=== PATIENT | male | born 1955 | race Caucasian/White ===

== ENCOUNTER 2019-08-18 22:58 | Day surgery (SDC) | payer SELFPAY ==
--- NOTE | 2019-08-18 23:16 | ED Physician Documentation ---
History of Present Illness - Stated complaint Stated Complaint: SOMETHING STUCK IN THROAT - Chief complaint Chief Complaint: Heent - History obtained from History obtained from: Patient (Patient is a 63-year-old male who reports he was in an sausage tonight and now it feels like it stuck in his throat he reports he is able to swallow and tolerate his secretions but now it feels like he is drooling and 7 more difficulty swallowing and discomfort in his throat he denies any history of previous similar episodes he reports he does not take any daily medicationsHe denies any illicit drug use or alcohol use.) Review of Systems Constitutional: reports: Reviewed and negative Eyes: reports: Reviewed and negative Ears: reports: Reviewed and negative Nose: reports: Reviewed and negative Throat: reports: Swallowed foreign body (Reports he swallowed sausage and now it stuck in his throat.) Cardiac: reports: Reviewed and negative Respiratory: reports: Reviewed and negative GI: reports: Reviewed and negative : reports: Reviewed and negative Skin: reports: Reviewed and negative Musculoskeletal: reports: Reviewed and negative Neurologic: reports: Reviewed and negative Psychiatric: reports: Reviewed and negative Endocrine: reports: Reviewed and negative Immunocompromised: reports: Reviewed and negative PD PAST MEDICAL HISTORY - Past Medical History Past Medical History: No Cardiovascular: None Respiratory: None Neuro: None Endocrine/Autoimmune: None GI: None : None HEENT: None Psych: None Musculoskeletal: None Derm: None - Past Surgical History Past Surgical History: Yes General: Other Ortho: Hip replacement, Knee replacement - Allergies Allergies/Adverse Reactions: Allergies Allergy/AdvReac Type Severity Reaction Status Date / Time No Known Drug Allergies Allergy Verified 08/18/19 23:10 - Social History Does the pt smoke?: No Smoking Status: Never smoker Does the pt drink ETOH?: No Does the pt have substance abuse?: No - Immunizations Immunizations are current?: Yes - POLST Patient has POLST: No PD ED PE NORMAL - Vitals Vital signs reviewed: Yes - General General: Alert and oriented X 3, No acute distress - HEENT HEENT: PERRL, Other (Patient is currently tolerating his secretions he is actively spitting up he is in no respiratory distress however he is drooling and spitting into a cup. Trachea is midline) - Neck Neck: Supple, no meningeal sign - Cardiac Cardiac: RRR, No murmur - Respiratory Respiratory: Clear bilaterally - Abdomen Abdomen: Normal bowel sounds, Soft, Non tender, Non distended - Derm Derm: Warm and dry - Extremities Extremities: No deformity - Neuro Neuro: Alert and oriented X 3 - Psych Psych: Normal mood, Normal affect Results - Vitals Vitals: Vital Signs - 24 hr 08/18/19 08/19/19 08/19/19 23:09 00:06 00:19 Temperature 36.7 C Heart Rate 104 H 94 94 Respiratory 18 20 19 Rate Blood Pressure 154/88 H 174/104 H O2 Saturation 100 97 94 08/19/19 00:47 Temperature Heart Rate Respiratory 18 Rate Blood Pressure O2 Saturation Oxygen O2 Source Room air - Labs Labs: Laboratory Tests 08/18/19 08/18/19 08/18/19 23:37 23:37 23:37 WBC 5.4 RBC 4.78 Hgb 14.7 Hct 44.7 MCV 93.5 MCH 30.8 MCHC 32.9 RDW 13.6 Plt Count 240 MPV 9.8 Neut # (Auto) 3.3 Lymph # (Auto) 1.4 L [place] # (Auto) 0.7 Eos # (Auto) 0.1 Baso # (Auto) 0.1 Absolute Nucleated RBC 0.00 Nucleated RBC % 0.0 PT 12.2 INR 1.1 APTT 32.6 Sodium 139 Potassium 4.0 Chloride 102 Carbon Dioxide 25 Anion Gap 12.0 BUN 27 H Creatinine 1.6 H Estimated GFR (MDRD) 44 L Glucose 271 H Calcium 8.9 Total Bilirubin 0.6 AST 61 H ALT 90 H Alkaline Phosphatase 61 Total Protein 7.5 Albumin 4.0 Globulin 3.5 Albumin/Globulin Ratio 1.1 Lipase 63 H PD MEDICAL DECISION MAKING - Consults Consults: Consulted (name) (dr barclay general surgeon), Discussed case with (dr barclay general surgeon will take patient to OR for food impaction of esophagus, patient updated, glucagon uneffective.) Departure - Departure Disposition: ED Transfer to [facility] Clinical Impression: Food impaction of esophagus Qualifiers: Encounter type: initial encounter Qualified Code(s): T18.128A - Food in esophagus causing other injury, initial encounter Condition: Fair
[2019-08-18] MEDS ORDERED: SODIUM CHLORIDE 0.9% 1,000 ML IV ONE (23:24)
[2019-08-18] MEDS ORDERED: GLUCAGON 5 MG in DEXTROSE 5% 45 ML IV STA (23:25)
[2019-08-18] MEDS ORDERED: ONDANSETRON 4 MG/2 ML VIAL IVP STA (23:25)
[2019-08-18] MEDS ORDERED: GLUCAGON 2 MG in DEXTROSE 5% 45 ML IV STA (23:36)
[2019-08-18 23:47] LABS: BASOPHILS # (AUTO) 0.1 10^3/uL (0.0-0.1); BASOPHILS % (AUTO) 1.3 %; EOSINOPHILS # (AUTO) 0.1 10^3/uL (0.0-0.7); EOSINOPHILS % (AUTO) 1.3 %; HGB - HEMOGLOBIN 14.7 g/dL (14.0-18.0); LYMPHOCYTES # (AUTO) 1.4 10^3/uL (1.5-3.5); LYMPHOCYTES % (AUTO) 24.8 %; MEAN CORPUSCULAR HEMOGLOBIN 30.8 pg (27.0-31.0); MEAN CORPUSCULAR HGB CONC 32.9 g/dL (32.0-36.0); MEAN CORPUSCULAR VOLUME 93.5 fL (80.0-94.0); MEAN PLATELET VOLUME 9.8 fL (7.4-11.4); MONOCYTES # (AUTO) 0.7 10^3/uL (0.0-1.0); MONOCYTES % (AUTO) 12.7 %; NEUTROPHILS # (AUTO) 3.3 10^3/uL (1.5-6.6); NEUTROPHILS % (AUTO) 59.7 %; PLT - PLATELET COUNT 240 10^3/uL (130-450); RED BLOOD COUNT 4.78 10^6/uL (4.70-6.10); RED CELL DISTRIBUTION WIDTH 13.6 % (12.0-15.0); WHITE BLOOD COUNT 5.4 x10^3/uL (4.8-10.8)
[2019-08-18] MEDS ORDERED: GLUCAGON 1 MG/ML VIAL ONE (23:53)
[2019-08-18 23:58] LABS: INR 1.1 (0.8-1.2); PT - PROTHROMBIN TIME 12.2 secs (9.9-12.6)
[2019-08-19 00:01] LABS: ALBUMIN/GLOBULIN RATIO 1.1 (1.0-2.2); BILIRUBIN,TOTAL 0.6 mg/dL (0.2-1.0); CALCIUM 8.9 mg/dL (8.5-10.3); CREATININE 1.6 mg/dL (0.6-1.2); TOTAL PROTEIN 7.5 g/dL (6.7-8.2)
[2019-08-19 00:11] LABS: PARTIAL THROMBOPLASTIN TIME 32.6 secs (24.9-33.3)
[2019-08-19] MEDS ORDERED: LIDOCAINE-MPF 2% 5 ML VIAL IM ONE (01:01)
[2019-08-19] MEDS ORDERED: PROPOFOL 200 MG/20 ML VIAL IVP ONE (01:01)
[2019-08-19] MEDS ORDERED: fentaNYL 100 MCG/2 ML VIAL IVP ONE (01:01)
[2019-08-19] MEDS ORDERED: ONDANSETRON 4 MG/2 ML VIAL IVP ONE (01:01)
[2019-08-19] MEDS ORDERED: MIDAZOLAM 2 MG/2 ML VIAL IVP ONE (01:01)
[2019-08-19] MEDS ORDERED: DEXAMETHASONE 4 MG/ML VIAL IVP ONE (01:01)
[2019-08-19] MEDS ORDERED: ePHEDrine 50 MG/ML VIAL IVP ONE (01:01)
--- NOTE | 2019-08-19 01:11 | CONSULTATION NOTE ---
Referring Provider Name of Referring Provider:: Dr. Heart Consult Date: 08/19/19 Chief Complaint - Chief Complaint Chief Complaint: dysphagia History of Present Illness - Admitted From Admitted From:: ER - History Obtained From Records Reviewed: yes History obtained from: pt Exam Limitations: none - History of Present Illness HPI Comment/Other: 63 yo male who was eating dinner at approx 10 pm this evening, 3 hours ago, when he noted his food become lodged in his esophagus and he became unable to swallow his secretions. He points to the base of his neck where the discomfort is located. He reports eating sausage for dinner. He has dentures but wasn't we aring them while eating. He reports no hx prior similar events. He reports occasional heartburn for which he uses Tums but not on a daily basis. He was not drinking alcohol this evening. No hx prior GI problems. In the ER he was given a trial of glucagon which was not effective in alleviating his sx. 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 - Substance History Use: Uses substance without health or social issues: Alcohol (less than 1 drink per day), Cannabis (rarely) - POLST Patient has POLST: No Meds/Allgy - Allergies Allergies/Adverse Reactions: Allergies Allergy/AdvReac Type Severity Reaction Status Date / Time No Known Drug Allergies Allergy Verified 08/18/19 23:10 Review of Systems - Gastrointestinal Gastrointestinal: reports: Reflux/heartburn. denies: Abdominal pain, Constipation, Diarrhea, Change in bowel habits, Rectal bleeding, Black stools, Bloody stools, Nausea, Vomiting - Hematologic/Lymphatic Hematologic/Lymphatic: denies: Blood clots, Bleeding tendencies - All Other Systems All Other Systems: reports: Reviewed and negative (or covered in HPI/PMH) Exam - Vital Signs Reviewed Vital Signs: Yes Vital Signs: Vital Signs x48h Temp Pulse Resp BP Pulse Ox 08/19/19 00:47 18 08/19/19 00:19 94 19 94 08/19/19 00:06 94 20 174/104 H 97 08/18/19 23:09 36.7 C 104 H 18 154/88 H 100 - Physical Exam General Appearance: positive: Alert, Mild distress (spitting his saliva into a container) Eyes Bilateral: positive: Normal inspection, No scleral icterus ENT: positive: ENT inspection nml, Other (poor dentition) Neck: positive: Nml inspection, Thyroid nml, No JVD, Trachea midline. negative: Lymphadenopathy (R), Lymphadenopathy (L) Respiratory: positive: Chest non-tender, No respiratory distress, Breath sounds nml. negative: Wheezes, Rales, Rhonchi Cardiovascular: positive: Regular rate & rhythm, No murmur, No gallop Abdomen: positive: Non-tender, No organomegaly, No distention. negative: Hepatomegaly, Splenomegaly, Mass Skin: positive: Color nml, No rash, Warm, Dry. negative: Cyanosis Extremities: positive: Non-tender, Nml appearance, No pedal edema. negative: Calf tenderness Neurologic/Psychiatric: positive: Oriented x3 Conclusion and Plan - Lab Results Laboratory Results 08/18/19 23:37: Sodium 139, Potassium 4.0, Chloride 102, Carbon Dioxide 25, Anion Gap 12.0, BUN 27 H, Creatinine 1.6 H, Estimated GFR (MDRD) 44 L, Glucose 271 H, Calcium 8.9, Total Bilirubin 0.6, AST 61 H, ALT 90 H, Alkaline Phosphatase 61, Total Protein 7.5, Albumin 4.0, Globulin 3.5, Albumin/Globulin Ratio 1.1, Lipase 63 H 08/18/19 23:37: PT 12.2, INR 1.1, APTT 32.6 08/18/19 23:37: WBC 5.4, RBC 4.78, Hgb 14.7, Hct 44.7, MCV 93.5, MCH 30.8, MCHC 32.9, RDW 13.6, Plt Count 240, MPV 9.8, Neut # (Auto) 3.3, Lymph # (Auto) 1.4 L, [place] # (Auto) 0.7, Eos # (Auto) 0.1, Baso # (Auto) 0.1, Absolute Nucleated RBC 0.00, Nucleated RBC % 0.0 - Diagnosis Diagnosis: 1. Food bolus foreign body obstruction of esophagus; poor dentition likely contributed to problem. No hx suggestive of significant underlying disease such as stricture or malignancy. 2. Hyperglycemia. Non fasting, but likely has diabetes. - Plan Plan: EGD with removal of foreign body. PAR conference including risk of aspiration and perforation discussed and consent obtained. The procedure will be performed later tonight as soon as it can be arranged. He will be advised to f/u with his PCP regarding possible diabetes diagnosis and treatment. Thanks,
--- NOTE | 2019-08-19 01:17 | ANESTHESIA ---
Pre-Anesthesia VS, & Labs - Diagnosis Food bolus in esophagus - Procedure EGD Vital Signs: Temp Pulse Resp BP Pulse Ox 36.7 C 94 18 174/104 H 94 08/18/19 23:09 08/19/19 00:19 08/19/19 00:47 08/19/19 00:06 08/19/19 00:19 Height 5 ft 8 in Weight (kg) 86.183 kg Body Mass Index 28.8 - NPO Other (3 hours ago) - Lab Results Current Lab Results: Laboratory Tests 08/18/19 23:37: Sodium 139, Potassium 4.0, Chloride 102, Carbon Dioxide 25, Anion Gap 12.0, BUN 27 H, Creatinine 1.6 H, Estimated GFR (MDRD) 44 L, Glucose 271 H, Calcium 8.9, Total Bilirubin 0.6, AST 61 H, ALT 90 H, Alkaline Phosphatase 61, Total Protein 7.5, Albumin 4.0, Globulin 3.5, Albumin/Globulin Ratio 1.1, Lipase 63 H 08/18/19 23:37: PT 12.2, INR 1.1, APTT 32.6 08/18/19 23:37: WBC 5.4, RBC 4.78, Hgb 14.7, Hct 44.7, MCV 93.5, MCH 30.8, MCHC 32.9, RDW 13.6, Plt Count 240, MPV 9.8, Neut # (Auto) 3.3, Lymph # (Auto) 1.4 L, [place] # (Auto) 0.7, Eos # (Auto) 0.1, Baso # (Auto) 0.1, Absolute Nucleated RBC 0.00, Nucleated RBC % 0.0 Fish Bones: 08/18/19 23:37 08/18/19 23:37 Home Medications and Allergies Allergies/Adverse Reactions: Allergies Allergy/AdvReac Type Severity Reaction Status Date / Time No Known Drug Allergies Allergy Verified 08/18/19 23:10 Anes History & Medical History - Anesthetic History Anesthesia Complications: reports: No previous complications Family history of Anesthesia Complications: Denies Family history of Malignant Hyperthermia: Denies - Medical History Cardiovascular: reports: None Pulmonary: reports: None Gastrointestinal: reports: None, GERD Urinary: reports: None, Other (Right nephrectomy) Neuro: reports: None Musculoskeletal: reports: None Endocrine/Autoimmune: reports: None Blood Disorders: reports: None Skin: reports: None Smoking Status: Never smoker Psychosocial: reports: No issues indicated - Surgical History General: Other Orthopedic: Hip replacement, Knee replacement Exam General: Alert Dental: Dentures full Upper, Dentures full Lower Mouth Opening: Greater than 4 Fingerbreadths Neck Mobility: Normal Mallampati classification: I Thyromental Distance: greater than 6 cm Respiratory: Lungs clear Mental/Cognitive Status: Alert/Oriented X3 Cognitive Status: Within normal limits Plan Anesthesia Type: General Consent for Procedure(s) Verified and Reviewed: Yes Code Status: Attempt Resuscitation ASA classification: 2-Mild systemic disease Is this case an emergency?: Yes
[2019-08-19] MEDS ORDERED: LACTATED RINGERS 1,000 ML IV ONE ×2 (01:51→02:27)
[2019-08-19 07:46] VITALS: BP 146/93
== END 2019-08-19 10:33 | disposition home or self-care (01) ==
LOC: ED 22:58 → SDS 08-19 01:00 → MS2 08-19 03:22 → SDS 08-19 10:33
PROVIDERS: ATTEND Internal Medicine Gastroenterology
PROC: 0DC58ZZ Extirpation of Matter from Esophagus, Via Natural or Artificial Opening Endoscopic (ICD-10-PCS; principal; 2019-08-18)
PROC: 0DB28ZX Excision of Middle Esophagus, Via Natural or Artificial Opening Endoscopic, Diagnostic (ICD-10-PCS; 2019-08-18)
DX: T18.128A Food in esophagus causing other injury, initial encounter (principal); X58.XXXA Exposure to other specified factors, initial encounter; K21.0 Gastro-esophageal reflux disease with esophagitis; R73.9 Hyperglycemia, unspecified; Z90.5 Acquired absence of kidney; Z96.649 Presence of unspecified artificial hip joint; Z96.659 Presence of unspecified artificial knee joint
CPT/HCPCS: 36415; 43239; 43247; 80053; 83690; 85025; 85610; 85730; 96365; 96375; 99284; 99285; J7120

== ENCOUNTER 2024-01-11 18:54 | Emergency (ER) | payer MEDICARE ==
[2024-01-11] MEDS ORDERED: SODIUM CHLORIDE 0.9% 1,000 ML IV STA (19:53)
[2024-01-11] MEDS: DROPERIDOL 5 MG/2 ML VIAL IVP STA (20:11)
[2024-01-11] MEDS: SODIUM CHLORIDE 0.9% 1,000 ML IV STA ×2 (20:12→22:08)
[2024-01-11 20:16] LABS: BASOPHILS % (AUTO) 0.5 %; EOSINOPHILS # (AUTO) 0.1 10^3/uL (0.0-0.7); EOSINOPHILS % (AUTO) 1.2 %; HCT - HEMATOCRIT 37.2 % (42.0-52.0); LYMPHOCYTES % (AUTO) 16.9 %; MEAN CORPUSCULAR HEMOGLOBIN 28.4 pg (27.0-31.0); MEAN CORPUSCULAR HGB CONC 32.3 g/dL (32.0-36.0); MEAN CORPUSCULAR VOLUME 88.2 fL (80.0-94.0); MEAN PLATELET VOLUME 10.7 fL (7.4-11.4); MONOCYTES # (AUTO) 0.8 10^3/uL (0.0-1.0); MONOCYTES % (AUTO) 14.2 %; PLT - PLATELET COUNT 214 10^3/uL (130-450); RED BLOOD COUNT 4.22 10^6/uL (4.70-6.10); RED CELL DISTRIBUTION WIDTH 11.8 % (12.0-15.0); WHITE BLOOD COUNT 5.9 x10^3/uL (4.8-10.8)
[2024-01-11 20:22] LABS: VBG PCO2 32.6 mmHg (41-51); VBG PH 7.383 (7.31-7.41); VBG PO2 59.4 mmHg (25-47)
[2024-01-11 20:23] LABS: VBG BASE EXCESS -5.1 mmol/L (-2 - +2); VBG OXYGEN SATURATION 90.9 % (60-80)
[2024-01-11 20:31] LABS: ALBUMIN 3.5 g/dL (3.2-5.5); ALBUMIN/GLOBULIN RATIO 1.1 (1.0-2.2); ALKALINE PHOSPHATASE 52 IU/L (42-121); ALT ALANINE AMINOTRANSFERASE 53 IU/L (10-60); AST ASPARTATE AMINOTRANSFERASE 32 IU/L (10-42); BILIRUBIN,TOTAL 0.6 mg/dL (0.2-1.0); BUN - BLOOD UREA NITROGEN 49 mg/dL (6-20); CALCIUM 10.5 mg/dL (8.5-10.3); CARBON DIOXIDE - CO2 20 mmol/L (21-32); CHLORIDE 106 mmol/L (101-111); CREATININE 1.1 mg/dL (0.6-1.3); GFR - MDRD 67 (>89); GLUCOSE 232 mg/dL (74-104); LIPASE 48 U/L (11-82); POTASSIUM 4.7 mmol/L (3.5-4.5); SODIUM 135 mmol/L (135-145); TOTAL PROTEIN 6.8 g/dL (6.4-8.9)
[2024-01-11 20:44] LABS: KETONES, SERUM (ACETEST) SMALL (NEGATIVE)
[2024-01-11 22:09] LABS: BILIRUBIN,URINE NEGATIVE (NEGATIVE); GLUCOSE, URINE (UA) 100 mg/dL (NEGATIVE); KETONES,URINE (UA) NEGATIVE (NEGATIVE); LEUKOCYTE ESTERASE, URINE NEGATIVE (NEGATIVE); NITRITE,URINE NEGATIVE (NEGATIVE); OCCULT BLOOD,URINE NEGATIVE (NEGATIVE); PH,URINE 5.5 PH (5.0-7.5); PROTEIN,URINE NEGATIVE (NEGATIVE); UROBILINOGEN,URINE 0.2 (NORMAL) E.U./dL (NORMAL)
[2024-01-11 22:11] LABS: CLARITY,URINE CLEAR (CLEAR)
[2024-01-11 22:21] LABS: AMPHETAMINE SCREEN,URINE NEGATIVE (NEGATIVE); BARBITURATE SCREEN,UR NEGATIVE (NEGATIVE); BENZODIAZEPINES SCREEN, URINE NEGATIVE (NEGATIVE); BUPRENORPHINE SCREEN, URINE NEGATIVE (NEGATIVE); COCAINE SCREEN URINE NEGATIVE (NEGATIVE); METHADONE SCREEN, URINE NEGATIVE (NEGATIVE); METHAMPHETAMINES SCREEN, URINE NEGATIVE (NEGATIVE); OPIATE SCREEN, URINE POSITIVE (NEGATIVE); OXYCODONE SCREEN, URINE NEGATIVE (NEGATIVE); THC CANNABINOID SCREEN, URINE NEGATIVE (NEGATIVE); TRICYCLIC ANTIDEPRESSANT,URINE NEGATIVE (NEGATIVE)
--- NOTE | 2024-01-11 22:53 | ED Physician Documentation ---
History of Present Illness - Stated complaint Stated Complaint: VOMIT/NO APPETITE - Chief complaint Chief Complaint: General - History obtained from History obtained from: Patient, Friend - History of Present Illness Timing: Other (several months) Pain level max: 5 Pain level now: 5 - Additonal information Additional information: 68-year-old male lives in [place], [place]. He has a history of diabetes . He has been to several emergency departments recently. Most recently was at [facility] 2 days ago, diagnosed with diverticulitis, placed on antibiotics. He states that he had vomiting today and was unable to take his medications. His friend states that his blood sugar has been running in the 200s. No fevers. No chills. He does have occasional abdominal pain. He is not having pain currently. He is on Eliquis for atrial fibrillation. He is on insulin for his diabetes. He states that he had been on metformin but is not taking this now. Does not have a PCP locally. His friend states that he is "homeless" and is staying with friends. Review of Systems Constitutional: denies: Fever, Chills Nose: denies: Rhinorrhea / runny nose, Congestion Respiratory: denies: Cough GI: reports: Nausea, Vomiting. denies: Hematemesis, Bloody / black stool : denies: Dysuria, Frequency, Hesitancy Skin: denies: Rash Musculoskeletal: denies: Neck pain, Back pain Neurologic: denies: Headache PD PAST MEDICAL HISTORY - Past Medical History Past Medical History: Yes Cardiovascular: Atrial fibrillation Respiratory: None Neuro: None Endocrine/Autoimmune: Type 2 diabetes GI: Diverticulitis : None HEENT: None Psych: None Musculoskeletal: Osteoarthritis Derm: None - Past Surgical History Past Surgical History: Yes General: Other Ortho: Hip replacement, Knee replacement, Other - Present Medications Home Medications: Ambulatory Orders Medication Instructions Recorded Confirmed Ondansetron Odt [Zofran] 4 mg TL Q6H PRN #10 tablet 01/11/24 Promethazine [Phenergan] 25 mg PO Q6H PRN #10 tab 01/11/24 - Allergies Allergies/Adverse Reactions: Allergies Allergy/AdvReac Type Severity Reaction Status Date / Time No Known Drug Allergies Allergy Verified 01/11/24 19:21 - Social History Does the pt smoke?: No Smoking Status: Never smoker Does the pt drink ETOH?: No Does the pt have substance abuse?: No - Immunizations Immunizations are current?: Yes - POLST Patient has POLST: No PD ED PE NORMAL - Vitals Vital signs reviewed: Yes - General General: Alert and oriented X 3, No acute distress - HEENT HEENT: PERRL, Moist mucous membranes, Pharynx benign - Neck Neck: Supple, no meningeal sign - Cardiac Cardiac: RRR, Strong equal pulses - Respiratory Respiratory: No respiratory distress, Clear bilaterally - Abdomen Abdomen: Soft, Non tender, Non distended - Back Back: No CVA TTP, No spinal TTP - Derm Derm: Warm and dry - Extremities Extremities: No edema - Neuro Neuro: Alert and oriented X 3 - Psych Psych: Normal mood, Normal affect Results - Vitals Vitals: Vital Signs - 24 hr 01/11/24 01/11/24 01/11/24 19:10 20:15 23:00 Temperature 36.4 C L Heart Rate 76 73 88 Respiratory 17 14 14 Rate Blood Pressure 92/55 L 118/69 136/78 H O2 Saturation 98 96 99 01/11/24 23:10 Temperature Heart Rate 78 Respiratory 18 Rate Blood Pressure 118/66 O2 Saturation 99 Oxygen O2 Source Room air - Labs Labs: Laboratory Tests 01/11/24 01/11/24 01/11/24 20:06 20:06 20:06 WBC 5.9 RBC 4.22 L Hgb 12.0 L Hct 37.2 L MCV 88.2 MCH 28.4 MCHC 32.3 RDW 11.8 L Plt Count 214 MPV 10.7 Neut # (Auto) 4.0 Lymph # (Auto) 1.0 L [place] # (Auto) 0.8 Eos # (Auto) 0.1 Baso # (Auto) 0.0 Absolute Nucleated RBC 0.00 Nucleated RBC % 0.0 VBG pH 7.383 VBG pCO2 32.6 L VBG pO2 59.4 H VBG HCO3 19.0 L VBG Total CO2 20.0 L VBG O2 Saturation 90.9 H VBG Base Excess -5.1 L Sodium 135 Potassium 4.7 H Chloride 106 Carbon Dioxide 20 L Anion Gap 9.0 BUN 49 H Creatinine 1.1 Estimated GFR (MDRD) 67 L Glucose 232 H Calcium 10.5 H Total Bilirubin 0.6 AST 32 ALT 53 Alkaline Phosphatase 52 Total Protein 6.8 Albumin 3.5 Globulin 3.3 Albumin/Globulin Ratio 1.1 Lipase 48 Urine Color Urine Clarity Urine pH Ur Specific [place] Urine Protein Urine Glucose (UA) Urine Ketones Urine Occult Blood Urine Nitrite Urine Bilirubin Urine Urobilinogen Ur Leukocyte Esterase Ur Microscopic Review Urine Culture Comments Urine Opiates Screen Ur Buprenorphine Scrn Ur Oxycodone Screen Urine Methadone Screen Ur Barbiturates Screen Ur Tricyclics Screen Ur Phencyclidine Scrn Ur Amphetamine Screen U Methamphetamines Scrn U Benzodiazepines Scrn Urine Cocaine Screen U Cannabinoids Screen Ur Drug Screen Comment Serum Ketones SMALL H 01/11/24 21:58 WBC RBC Hgb Hct MCV MCH MCHC RDW Plt Count MPV Neut # (Auto) Lymph # (Auto) [place] # (Auto) Eos # (Auto) Baso # (Auto) Absolute Nucleated RBC Nucleated RBC % VBG pH VBG pCO2 VBG pO2 VBG HCO3 VBG Total CO2 VBG O2 Saturation VBG Base Excess Sodium Potassium Chloride Carbon Dioxide Anion Gap BUN Creatinine Estimated GFR (MDRD) Glucose Calcium Total Bilirubin AST ALT Alkaline Phosphatase Total Protein Albumin Globulin Albumin/Globulin Ratio Lipase Urine Color YELLOW Urine Clarity CLEAR Urine pH 5.5 Ur Specific [place] >=1.030 H Urine Protein NEGATIVE Urine Glucose (UA) 100 H Urine Ketones NEGATIVE Urine Occult Blood NEGATIVE Urine Nitrite NEGATIVE Urine Bilirubin NEGATIVE Urine Urobilinogen 0.2 (NORMAL) Ur Leukocyte Esterase NEGATIVE Ur Microscopic Review NOT INDICATED Urine Culture Comments NOT INDICATED Urine Opiates Screen POSITIVE H Ur Buprenorphine Scrn NEGATIVE Ur Oxycodone Screen NEGATIVE Urine Methadone Screen NEGATIVE Ur Barbiturates Screen NEGATIVE Ur Tricyclics Screen NEGATIVE Ur Phencyclidine Scrn NEGATIVE Ur Amphetamine Screen NEGATIVE U Methamphetamines Scrn NEGATIVE U Benzodiazepines Scrn NEGATIVE Urine Cocaine Screen NEGATIVE U Cannabinoids Screen NEGATIVE Ur Drug Screen Comment CUTOFF CONC BELOW: Serum Ketones PD Medical Decision Making - ED course Complexity details: reviewed results, re-evaluated patient, considered differential, d/w patient ED course: Patient is well-appearing, nontoxic. Afebrile. He was given IV fluids and blood pressure improved. He was given droperidol, nausea and vomiting resolved. Abdominal pain resolved. Abdomen is soft, nontender nondistended on serial exam. White blood cell count is normal. His blood glucose is mildly elevated, does have some ketones, but small amount, likely combination of dehydration and diabetes. Does not appear to be in DKA. Given that his abdominal exam is benign, his white blood cell count is normal, do not feel a repeat CT is necessary 2 days later for his diverticulitis that is being treated with antibiotics. Recommend that he continue his current antibiotics at home. He is eating and drinking without any difficulty here. He states he feels much better. [place] No social workers available here tonight. No indication for admission to the hospital. Will have him follow-up as an outpatient. Continue his current medications. Patient counseled regarding signs and symptoms for which I believe and urgent re-evaluation would be necessary. Patient with good understanding of and agreement to plan and is comfortable going home at this time This document was made in part using voice recognition software. While efforts are made to proofread this document, sound alike and grammatical errors may occur. Departure - Departure Disposition: Home, Self Care Clinical Impression: Hyperglycemia due to diabetes mellitus, Dehydration Condition: Good Instructions: ED Hyperglycemia Diabetic, ED Dehydration Follow-Up: [facility] [place] [Provider Group] [facility] [place] [Provider Group] Prescriptions: Promethazine [Phenergan] 25 mg PO Q6H PRN #10 tab PRN Reason: Nausea / Vomiting Ondansetron Odt [Zofran] 4 mg TL Q6H PRN #10 tablet PRN Reason: Nausea / Vomiting Comments: You were [facility]. You are also given droperidol which is a nausea medication. We will add Zofran and Phenergan to your medications at home to help with any nausea that you are having. As you had a CT scan 2 days ago at [facility], we did not repeat your CT scan today. Your white blood cell count is normal. I do not have access to the records from [facility], so you will need to follow-up closely with the primary care provider to help with your medications at home including your diabetes and high blood pressure medications. You need to take your insulin as prescribed. Your prescriptions were sent to [facility] in [place]. Please return if you worsen. Forms: PCP List Discharge Date/Time: 01/11/24 23:11
[2024-01-11 23:12] VITALS: BP 118/66; O2SAT 99
== END 2024-01-11 23:11 | disposition home or self-care (01) ==
LOC: ED 18:54
DX: E11.65 Type 2 diabetes mellitus with hyperglycemia (principal); E86.0 Dehydration; I48.91 Unspecified atrial fibrillation; Z59.00 Homelessness unspecified; Z79.84 Long term (current) use of oral hypoglycemic drugs; Z79.4 Long term (current) use of insulin; Z79.01 Long term (current) use of anticoagulants
CPT/HCPCS: 36415; 80053; 80306; 81001; 81003; 82009; 82803; 83690; 85025; 87086; 96361; 96374; 99283